=== PATIENT | male | born 1985 | race Caucasian/White ===

== ENCOUNTER 2018-11-12 16:01 | Inpatient (IN) ==
[2018-11-12] MEDS ORDERED: ALUM/MAG/SIMETH/LIDO VISC 1:1 30 ML BOTTLE PO ONE ×2 (16:30→16:31)
[2018-11-12] MEDS ORDERED: NITROGLYCERIN SL 0.4 MG TABLET SL ONE (16:31)
[2018-11-12] MEDS ORDERED: MORPHINE 4 MG/1 ML VIAL ONE (16:31)
[2018-11-12] MEDS ORDERED: ASPIRIN 325 MG TABLET PO STA (16:32)
[2018-11-12] MEDS ORDERED: MORPHINE 4 MG/1 ML VIAL IV STA (16:32)
[2018-11-12] MEDS ORDERED: NITROGLYCERIN SL 0.4 MG TABLET SL PRN (16:32)
[2018-11-12] MEDS ORDERED: ONDANSETRON 4 MG/2 ML VIAL IV PRN (16:40)
[2018-11-12] MEDS ORDERED: ONDANSETRON 4 MG/2 ML VIAL ONE (16:42)
[2018-11-12] MEDS: ONDANSETRON 4 MG/2 ML VIAL IV PRN (16:46)
[2018-11-12 17:03] LABS: Basophils % 0.2 % (0.0-0.8); Eosinophils # 0.1 10*3/uL (0.0-0.87); Eosinophils % 0.4 % (0.00-10.9); Hematocrit 43.9 VOL% (42.0-52.0); Hemoglobin 15.3 GM/DL (14.0-18.0); Immature Granulocytes % 0.4 %; Immature Granulocytes Absolute 0.05 #; Lymphocytes % 8.1 % (21.2-54.2); Mean Corpuscular HGB Conc 34.9 GM/DL (32-36); Mean Corpuscular Volume 84.3 FL (87-102); Mean Platelet Volume 10.9 FL (9.6-12.0); Monocytes % 7.7 % (1.7-12.7); Neutrophils % 83.2 % (38.7-73.9); Platelet Count 170 T/CUMM (130-400); Red Blood Count 5.21 MC/CUMM (3.8-5.5); Red Cell Distribution Width 12.6 % (9.3-17.3); White Blood Count 12.4 T/CUMM (4-12)
[2018-11-12 17:11] LABS: INR 0.9; PT Patient Result 10.1 SECS (9.6-12.2)
[2018-11-12 17:20] LABS: Calcium 9.7 MG/DL (8.5-10.1); Osmolality,Calculated 279.5 MOS/KG (273-304)
[2018-11-12] MEDS ORDERED: ACETAMINOPHEN 325 MG TABLET PO PRN (18:37)
[2018-11-12] MEDS: SODIUM CHLORIDE 0.9% 1,000 ML IV SCH (20:57)
[2018-11-12] MEDS: FAMOTIDINE 20 MG/2 ML VIAL IV SCH ×2 (20:57→22:15)
[2018-11-13 04:41] LABS: Basophils % 0.4 % (0.0-0.8); Eosinophils # 0.1 10*3/uL (0.0-0.87); Hemoglobin 15.1 GM/DL (14.0-18.0); Immature Granulocytes % 0.4 %; Immature Granulocytes Absolute 0.04 #; Lymphocytes # 1.1 10*3/uL (1.4-4.0); Lymphocytes % 11.3 % (21.2-54.2); Mean Corpuscular HGB Conc 33.6 GM/DL (32-36); Mean Corpuscular Volume 86.5 FL (87-102); Mean Platelet Volume 11.5 FL (9.6-12.0); Monocytes % 11.5 % (1.7-12.7); Neutrophils % 75.4 % (38.7-73.9); Platelet Count 151 T/CUMM (130-400); Red Cell Distribution Width 12.7 % (9.3-17.3); White Blood Count 9.8 T/CUMM (4-12)
[2018-11-13 05:06] LABS: Calcium 8.9 MG/DL (8.5-10.1); Thyroid Stimulating Hormone 0.693 uIU/ml (0.358-3.74)
[2018-11-13] MEDS: SODIUM CHLORIDE 0.9% 1,000 ML IV SCH ×2 (06:05→17:12)
[2018-11-13] MEDS: FAMOTIDINE 20 MG/2 ML VIAL IV SCH ×2 (08:24→20:58)
[2018-11-13 15:37] LABS: Albumin 3.5 G/DL (3.4-5.0); Bilirubin,Direct 0.19 MG/DL (0.0-0.20); Bilirubin,Indirect 0.5 MG/DL (0.0-1.0); Bilirubin,Total 0.7 MG/DL (0.2-1.0); Total Protein 6.6 G/DL (6.4-8.3)
[2018-11-13] MEDS: MORPHINE 4 MG/1 ML VIAL IV PRN (20:54)
[2018-11-14] MEDS: SODIUM CHLORIDE 0.9% 1,000 ML IV SCH ×2 (02:58→16:16)
[2018-11-14] MEDS: FAMOTIDINE 20 MG/2 ML VIAL IV SCH (10:46)
[2018-11-14] MEDS ORDERED: INDOCYANINE GREEN 25 MG VIAL IV ONE (11:30)
[2018-11-14] MEDS ORDERED: ceFAZolin 2,000 MG in PREMIX 1 EACH IV ONE (11:30)
[2018-11-14] MEDS ORDERED: BUPIVACAINE 0.25% /EPI 10 ML VIAL ONE (13:20)
[2018-11-14] MEDS ORDERED: TISSUE ADHESIVE 1 EACH APPLICATOR TOP ONE (13:20)
[2018-11-14] MEDS ORDERED: LIDOCAINE MPF 1% /EPI 30 ML VIAL ONE (13:20)
[2018-11-14] MEDS ORDERED: MIDAZOLAM 2 MG/2 ML VIAL ONE (14:44)
[2018-11-14] MEDS ORDERED: SEVOFLURANE 1 UNIT/15 MINUTE INH ONE (14:44)
[2018-11-14] MEDS ORDERED: PROPOFOL 200 MG/20 ML VIAL IV ONE (14:44)
[2018-11-14] MEDS ORDERED: NEOSTIGMINE 10 MG/10 ML VIAL ONE (14:45)
[2018-11-14] MEDS ORDERED: fentaNYL 100 MCG/2 ML VIAL ONE (14:45)
[2018-11-14] MEDS ORDERED: ACETAMINOPHEN 1,000 MG/100 ML VIAL IV ONE (14:45)
[2018-11-14] MEDS ORDERED: ONDANSETRON 4 MG/2 ML VIAL ONE (14:45)
[2018-11-14] MEDS ORDERED: GLYCOPYRROLATE 0.4 MG/2 ML VIAL ONE (14:45)
[2018-11-14] MEDS ORDERED: DEXAMETHASONE 4 MG/1 ML VIAL ONE (14:45)
[2018-11-14 16:04] VITALS: BP 114/74
[2018-11-14] MEDS: MORPHINE 4 MG/1 ML VIAL IV PRN (16:10)
[2018-11-14] MEDS: ONDANSETRON 4 MG/2 ML VIAL IV PRN (16:20)
== END 2018-11-14 19:40 | disposition home or self-care (01) | DRG 419 ==
LOC: N.ED 16:01 → N.EDINP 18:37 → SUATTDRO 18:37 → N.2E 19:31
PROVIDERS: ADMIT Internal Medicine; ATTEND Internal Medicine